=== PATIENT | male | born 1980 ===

== ENCOUNTER 2020-12-13 22:16 | Emergency (ER) | payer BC, OTHER ==
[2020-12-13] MEDS ORDERED: propofoL 200 MG/20 ML VIAL IV ONE (23:37)
[2020-12-14] MEDS ORDERED: propofoL 200 MG/20 ML VIAL IV ONE (00:07)
[2020-12-14] MEDS ORDERED: MIDAZOLAM HCL 2 MG/2 ML INJ ONE ×2 (00:10→00:45)
[2020-12-14] MEDS ORDERED: FENTANYL CITR 100 MCG/2 ML ONE ×4 (00:10→02:03)
[2020-12-14] MEDS ORDERED: NA CHLORIDE 0.9% 1,000 ML ONE (00:34)
[2020-12-14] MEDS ORDERED: ONDANSETRON 4 MG/2 ML VIAL ONE (02:07)
[2020-12-14] MEDS ORDERED: NA CHLORIDE 0.9% 100 ML ONE (02:29)
[2020-12-14] MEDS ORDERED: FOSPHENYTOIN PE 500 MG/10 ML VIAL ONE (02:31)
--- NOTE | 2020-12-14 03:36 | ER ---
Nurse's Notes [facility] Name: Yasir Padilla Age: 40 yrs Sex: Male : 1980 Arrival Date: 12/13/2020 Time: 22:17 Bed 23 Private MD: Diagnosis: Epilepsy and recurrent seizures;Other dislocation of right shoulder joint;Recurrent dislocation, right shoulder Presentation: 12/13 22:20 Acuity: LISA 3 ll2 22:20 Onset of symptoms was December 13, 2020 at 23:05. ll2 23:01 Chief complaint: EMS states: EMS toned to group home for inmate having 1 unwitnessed and 1 ll2 witnessed seizure and possible shoulder dislocation. arrived with 2 guards in handcuffs. states he stopped taking is dilantin and hasn't had it for about a week now. this has happened prior according to patient. pt is calm and cooperative. dilatin was administered in route according to EMS. Coronavirus screen: Client denies travel out of the [place] in the last 14 days. At this time, the client does not indicate any symptoms associated with coronavirus-19. Ebola Screen: Patient negative for fever greater than or equal to 101.5 degrees Fahrenheit, and additional compatible Ebola Virus Disease symptoms. Initial Sepsis Screen: Does the patient meet any 2 criteria? No. Patient's initial sepsis screen is negative. Does the patient have a suspected source of infection? No. Patient's initial sepsis screen is negative. Risk Assessment: Do you want to hurt yourself or someone else? Patient reports no desire to harm self or others. 23:01 Method Of Arrival: EMS: [facility] ll2 Triage Assessment: 23:10 General: Appears in no apparent distress. Behavior is calm, cooperative, appropriate ll2 for age. Pain: Denies pain. Neuro: Level of Consciousness is awake, alert, obeys commands, Oriented to person, place, time, situation. Cardiovascular: Patient's skin is warm and dry. Respiratory: Airway is patent Respiratory effort is even, unlabored, Respiratory pattern is regular, symmetrical. Derm: Skin is intact, is healthy with good turgor. Musculoskeletal: Circulation, motion, and sensation intact. Range of motion: intact in all extremities. Historical: - Allergies: 23:10 No Known Allergies; ll2 - Home Meds: 23:10 Risperdal 0.25 mg Oral tab 2 tabs 2 times per day [Active]; Dilantin 30 mg Oral cap ll2 [Active]; Benadryl 25 mg Oral cap 2 caps once daily [Active]; - PMHx: 12/14 04:21 Seizures; sg - Immunization history:: Adult Immunizations up to date. - Social history:: Smoking status: unknown. Screenin:33 Abuse screen: Denies threats or abuse. Nutritional screening: No deficits noted. ll2 Tuberculosis screening: No symptoms or risk factors identified. Fall Risk None identified. Assessment: 12/13 23:11 Reassessment: see triage assessment. ll2 12/14 00:15 Reassessment: Patient and/or family updated on plan of care and expected duration. Pain ll2 level reassessed. Patient is alert, oriented x 3, equal unlabored respirations, skin warm/dry/pink. 02:00 Reassessment: Patient and/or family updated on plan of care and expected duration. Pain ll2 level reassessed. Patient is alert, oriented x 3, equal unlabored respirations, skin warm/dry/pink. 03:00 Reassessment: Patient and/or family updated on plan of care and expected duration. Pain ll2 level reassessed. Patient is alert, oriented x 3, equal unlabored respirations, skin warm/dry/pink. 04:18 Reassessment: Patricia with [facility] care, Inmate number [id number]. spoke with Radha reed with transport command center, awaiting a call back with [facility] for transport at this time. 05:04 Reassessment: report given to Joselyn AUSTIN with [facility] ER. Vital Signs: 12/13 23:00 BP 144 / 94; Pulse 69; Resp 15; Temp 98.6; Pulse Ox 100% on R/A; ll2 23:01 BP 143 / 76; Pulse 88; Resp 18; Pulse Ox 99% on R/A; ll2 23:40 BP 154 / 80; Pulse 94; Resp 18; Pulse Ox 98% on R/A; ll2 23:52 BP 98 / 85; Pulse 94; Resp 20; Pulse Ox 94% on R/A; ll2 23:58 BP 129 / 90; Pulse 99; Resp 22; Pulse Ox 94% on R/A; ll2 12/14 00:04 BP 116 / 73; Pulse 74; Resp 20; Pulse Ox 92% on R/A; ll2 01:00 BP 140 / 92; Pulse 86; Resp 18; Pulse Ox 94% on 2 lpm NC; ll2 04:35 Weight 104.33 kg (R); Height 6 ft. 1 in. (185.42 cm); sg 04:35 Body Mass Index 30.34 (104.33 kg, 185.42 cm) sg ED Course: 12/13 22:17 Patient arrived in ED. sg 22:18 Zachery Moody MD is Attending Physician. kdr 22:35 Shoulder Right (2 View) XRAY In Process Unspecified. EDMS 22:58 CT Head C Spine In Process Unspecified. EDMS 23:01 Susana Palma, RN is Primary Nurse. ll2 23:06 Triage completed. ll2 12/14 00:35 Shoulder Right (2 View) XRAY In Process Unspecified. EDMS 01:33 Patient has correct armband on for positive identification. Bed in low position. ll2 school bus monitor on. Pulse ox on. NIBP on. 01:33 Assist provider with reduction of right shoulder. ll2 01:40 Inserted saline lock: 22 gauge in right hand, using aseptic technique. ea 02:29 Attempted to initiate transfer with Benjy from [facility]. Stated that it would be tt3 denied due to them not being capable to find and provide transportation to [place] due to weather. Stated we could try at [facility] and if accepted, they would give approval for that. Information was passed on to Dr. Moody. 02:37 Initiated transfer at [facility] with ITALIA. Stated he would call back. tt3 02:45 ITALIA called back with Dr. Estevez to speak with Dr. Moody regarding the transfer request.tt3 03:20 Arm band placed on. sg 03:31 Primary Nurse role handed off by Susana Palma, RN sg 03:31 Sammy Michael, RN is Primary Nurse. sg 05:50 Patient transferred, IV remains in place. intact, No redness/swelling at site. sg Administered Medications: 12/13 23:46 Drug: Propofol 100 mg Route: IVP; Site: right antecubital; ll2 12/14 01:00 Follow up: Response: No adverse reaction ll2 12/13 23:48 Drug: Propofol 100 mg Route: IVP; Site: right antecubital; ll2 12/14 00:45 Follow up: Response: No adverse reaction ll2 12/13 23:50 Drug: Propofol 100 mg Route: IVP; Site: right antecubital; ll2 12/14 02:50 Follow up: Response: No adverse reaction ll2 12/13 23:55 Drug: fentaNYL (PF) 100 mcg Route: IVP; Site: right antecubital; ll2 12/14 01:00 Follow up: Response: No adverse reaction ll2 12/13 23:55 Drug: fentaNYL (PF) 100 mcg Route: IVP; Site: right antecubital; ll2 12/14 01:00 Follow up: Response: No adverse reaction ll2 12/13 23:55 Drug: Versed 2 mg Route: IVP; Site: right antecubital; ll2 12/14 02:50 Follow up: Response: No adverse reaction ll2 12/13 23:55 Drug: Versed 2 mg Route: IVP; Site: right antecubital; ll2 12/14 02:50 Follow up: Response: No adverse reaction ll2 01:45 Drug: Versed 2 mg Route: IVP; Site: right hand; ll2 02:55 Follow up: Response: No adverse reaction ll2 01:47 Drug: fentaNYL (PF) 100 mcg Route: IVP; Site: right hand; ll2 03:00 Follow up: Response: No adverse reaction ll2 01:47 Drug: fentaNYL (PF) 100 mcg Route: IVP; Site: right hand; ll2 01:50 Follow up: Response: No adverse reaction ll2 01:50 Drug: Versed 2 mg Route: IVP; Site: right hand; ll2 02:50 Follow up: Response: No adverse reaction ll2 01:50 Drug: Versed 2 mg Route: IVP; Site: right hand; ll2 02:50 Follow up: Response: No adverse reaction ll2 01:50 Drug: Zofran (Ondansetron) 4 mg Route: IVP; Site: right hand; ll2 02:50 Follow up: Response: No adverse reaction ll2 02:22 Drug: Fosphenytoin 1 grams Route: IVPB; Site: right hand; ll2 03:30 Follow up: Response: No adverse reaction; IV Status: Completed infusion; IV Intake: ll2 100ml Outcome: 03:35 ER care complete, transfer ordered by . kdr 05:00 Transferred by ground EMS to [facility], [facility], Transfer form completed. sg 05:00 Condition: stable 05:00 Instructed on the need for transfer, safety practices, Demonstrated understanding of instructions, report given to Joselyn AUSTIN in the ER, accepting ortho 05:50 Patient left the ED. sg Signatures: Dispatcher [employer] EDMS Sammy Michael, RN RN sg Zachery Moody MD MD [facility] Ivone Hoffmann RN RN Susana Guardado RN RN ll2 Robert Maya tt3 Corrections: (The following items were deleted from the chart) 03:23 02:30 Versed 2 mg IVP in right hand ll2 ll2 03:24 02:00 Versed 2 mg IVP in right hand ll2 ll2 03:25 01:40 Versed 2 mg IVP in right antecubital ll2 ll2 03:26 01:40 Versed 2 mg IVP in right antecubital ll2 ll2
--- NOTE | 2020-12-14 03:36 | EDPHYS ---
Physician Documentation [facility] Name: Yasir Padilla Age: 40 yrs Sex: Male : 1980 Arrival Date: 12/13/2020 Time: 22:17 Bed 23 Private MD: ED Physician Zachery Moody HPI: 12/14 03:23 This 40 yrs old Male presents to ER via EMS with complaints of s/p seizure kdr and right shoulder dislocation. 03:23 MARICRUZ patient sates that he has been out of his meds for about a week and had a seizure kdr today. He ahas an abrasion on his forehead and his right shoulder appears to be dislocated. He states that this is the third time this has happened. He has no other injuries or c/o in the ED. Onset: The symptoms/episode began/occurred suddenly, just prior to arrival. Severity of symptoms: At their worst the symptoms were mild moderate in the emergency department the symptoms are unchanged. The patient has experienced similar episodes in the past, several times. The patient has not recently seen a physician. Historical: - Allergies: 12/13 23:10 No Known Allergies; ll2 - Home Meds: 23:10 Risperdal 0.25 mg Oral tab 2 tabs 2 times per day [Active]; Dilantin 30 mg Oral cap ll2 [Active]; Benadryl 25 mg Oral cap 2 caps once daily [Active]; - PMHx: 12/14 04:21 Seizures; sg - Immunization history:: Adult Immunizations up to date. - Social history:: Smoking status: unknown. ROS: 03:23 Constitutional: Negative for fever, chills, and weight loss, Eyes: Negative for injury, kdr pain, redness, and discharge, ENT: Negative for injury, pain, and discharge, Neck: Negative for injury, pain, and swelling, Cardiovascular: Negative for chest pain, palpitations, and edema, Respiratory: Negative for shortness of breath, cough, wheezing, and pleuritic chest pain, Abdomen/GI: Negative for abdominal pain, nausea, vomiting, diarrhea, and constipation, Back: Negative for injury and pain, : Negative for injury, bleeding, discharge, and swelling, Skin: Negative for injury, rash, and discoloration, Psych: Negative for depression, anxiety, suicide ideation, homicidal ideation, and hallucinations, Allergy/Immunology: Negative for hives, rash, and allergies, Endocrine: Negative for neck swelling, polydipsia, polyuria, polyphagia, and marked weight changes, Hematologic/Lymphatic: Negative for swollen nodes, abnormal bleeding, and unusual bruising. 03:23 MS/extremity: Positive for injury or acute deformity, decreased range of motion, pain, swelling, tenderness, of the anterior aspect of right shoulder and posterior aspect of right shoulder, Negative for laceration, paresthesias. Exam: 03:23 Constitutional: This is a well developed, well nourished patient who is awake, alert, kdr and in no acute distress. Head/Face: Normocephalic, atraumatic. Eyes: Pupils equal round and reactive to light, extra-ocular motions intact. Lids and lashes normal. Conjunctiva and sclera are non-icteric and not injected. Cornea within normal limits. Periorbital areas with no swelling, redness, or edema. Neck: Trachea midline, no thyromegaly or masses palpated, and no cervical lymphadenopathy. Supple, full range of motion without nuchal rigidity, or vertebral point tenderness. No Meningismus. Chest/axilla: Normal chest wall appearance and motion. Nontender with no deformity. No lesions are appreciated. Cardiovascular: Regular rate and rhythm with a normal S1 and S2. No gallops, murmurs, or rubs. Normal PMI, no JVD. No pulse deficits. Respiratory: Lungs have equal breath sounds bilaterally, clear to auscultation and percussion. No rales, rhonchi or wheezes noted. No increased work of breathing, no retractions or nasal flaring. Abdomen/GI: Soft, non-tender, with normal bowel sounds. No distension or tympany. No guarding or rebound. No evidence of tenderness throughout. Back: No spinal tenderness. No costovertebral tenderness. Full range of motion. Skin: Warm, dry with normal turgor. Normal color with no rashes, no lesions, and no evidence of cellulitis. Neuro: Awake and alert, GCS 15, oriented to person, place, time, and situation. Cranial nerves II-XII grossly intact. Motor strength 5/5 in all extremities. Sensory grossly intact. Cerebellar exam normal. Normal gait. Psych: Awake, alert, with orientation to person, place and time. Behavior, mood, and affect are within normal limits. 03:23 Musculoskeletal/extremity: Extremities: grossly normal except: noted in the anterior aspect of right shoulder and posterior aspect of right shoulder: decreased ROM, pain, tenderness. Vital Signs: 12/13 23:00 BP 144 / 94; Pulse 69; Resp 15; Temp 98.6; Pulse Ox 100% on R/A; ll2 23:01 BP 143 / 76; Pulse 88; Resp 18; Pulse Ox 99% on R/A; ll2 23:40 BP 154 / 80; Pulse 94; Resp 18; Pulse Ox 98% on R/A; ll2 23:52 BP 98 / 85; Pulse 94; Resp 20; Pulse Ox 94% on R/A; ll2 23:58 BP 129 / 90; Pulse 99; Resp 22; Pulse Ox 94% on R/A; ll2 12/14 00:04 BP 116 / 73; Pulse 74; Resp 20; Pulse Ox 92% on R/A; ll2 01:00 BP 140 / 92; Pulse 86; Resp 18; Pulse Ox 94% on 2 lpm NC; ll2 04:35 Weight 104.33 kg (R); Height 6 ft. 1 in. (185.42 cm); sg 04:35 Body Mass Index 30.34 (104.33 kg, 185.42 cm) sg Procedures: 03:23 Reduction: of the right shoulder, using traction, manipulation, Immobilized with kdr shoulder immobilizer. Patient tolerated Post reduction film - Continues to be anteriorly dislocated. The patient was difficult to get adequately sedated and relaxed. ON the first attempt with propofol, the patient has his best sedation and it was felt that he had been reduced. The patient states that when the central sterilization technician put the board behind him, it popped out again and he had immediate pain. On two subsequent attempts, the patient was never adequately sedated despite tremendous doses of narcotics and benzo's. Therefore, it was determined that he should be transferred to a facility with on-call ortho who could address this issue.. MDM: 03:23 Data reviewed: vital signs, nurses notes, radiologic studies. Counseling: I had a kdr detailed discussion with the patient and/or guardian regarding: the historical points, exam findings, and any diagnostic results supporting the discharge/admit diagnosis, lab results, radiology results, the need to transfer to another facility. 03:35 Patient medically screened. kdr 12/13 22:19 Order name: Janette; Complete Time: 02:02 kdr 12/13 22:19 Order name: CT Head C Spine kdr 12/13 22:19 Order name: Shoulder Right (2 View) XRAY kdr 12/14 00:04 Order name: Shoulder Right (2 View) XRAY em Administered Medications: 12/13 23:46 Drug: Propofol 100 mg Route: IVP; Site: right antecubital; ll2 12/14 01:00 Follow up: Response: No adverse reaction ll2 12/13 23:48 Drug: Propofol 100 mg Route: IVP; Site: right antecubital; ll2 12/14 00:45 Follow up: Response: No adverse reaction ll2 12/13 23:50 Drug: Propofol 100 mg Route: IVP; Site: right antecubital; ll2 12/14 02:50 Follow up: Response: No adverse reaction ll2 12/13 23:55 Drug: fentaNYL (PF) 100 mcg Route: IVP; Site: right antecubital; ll2 12/14 01:00 Follow up: Response: No adverse reaction ll2 12/13 23:55 Drug: fentaNYL (PF) 100 mcg Route: IVP; Site: right antecubital; ll2 12/14 01:00 Follow up: Response: No adverse reaction ll2 12/13 23:55 Drug: Versed 2 mg Route: IVP; Site: right antecubital; ll2 12/14 02:50 Follow up: Response: No adverse reaction ll2 12/13 23:55 Drug: Versed 2 mg Route: IVP; Site: right antecubital; ll2 12/14 02:50 Follow up: Response: No adverse reaction ll2 01:45 Drug: Versed 2 mg Route: IVP; Site: right hand; ll2 02:55 Follow up: Response: No adverse reaction ll2 01:47 Drug: fentaNYL (PF) 100 mcg Route: IVP; Site: right hand; ll2 03:00 Follow up: Response: No adverse reaction ll2 01:47 Drug: fentaNYL (PF) 100 mcg Route: IVP; Site: right hand; ll2 01:50 Follow up: Response: No adverse reaction ll2 01:50 Drug: Versed 2 mg Route: IVP; Site: right hand; ll2 02:50 Follow up: Response: No adverse reaction ll2 01:50 Drug: Versed 2 mg Route: IVP; Site: right hand; ll2 02:50 Follow up: Response: No adverse reaction ll2 01:50 Drug: Zofran (Ondansetron) 4 mg Route: IVP; Site: right hand; ll2 02:50 Follow up: Response: No adverse reaction ll2 02:22 Drug: Fosphenytoin 1 grams Route: IVPB; Site: right hand; ll2 03:30 Follow up: Response: No adverse reaction; IV Status: Completed infusion; IV Intake: ll2 100ml Disposition: 12/14/20 03:35 Transfer ordered to [facility]. Diagnosis are Epilepsy and recurrent seizures, Other dislocation of right shoulder joint, Recurrent dislocation, right shoulder. - Reason for transfer: Higher level of care. - Accepting physician is [facility]/ortho - awaiting ED contact. - Condition is Fair. - Problem is an acute exacerbation. - Symptoms are unchanged. Signatures: Dispatcher [employer] EDMS Sammy Michael RN RN sg Zachery Moody MD MD kdr Susana Palma RN RN ll2 Corrections: (The following items were deleted from the chart) 05:50 03:35 12/14/2020 03:35 Transfer ordered to [facility]. sg Diagnosis is Epilepsy and recurrent seizures; Other dislocation of right shoulder joint; Recurrent dislocation, right shoulder. Reason for transfer: Higher level of care. Accepting physician is [facility]ortho - awaiting ED contact. Condition is Fair. Problem is an acute exacerbation. Symptoms are unchanged. kdr
[2020-12-14 05:55] VITALS: TEMP 98.6
[2020-12-14 06:02] VITALS: BP 140/92; O2SAT 94
--- NOTE | 2020-12-14 08:02 | RAD REPORT ---
EXAM DESCRIPTION: Shoulder Right 2 View - 12/13/2020 10:35 pm CLINICAL HISTORY: PAIN, fall COMPARISON: No comparisons TECHNIQUE: Internal and external rotation views of the right shoulder were obtained. FINDINGS: Right humeral head is dislocated inferior to the glenoid. There is only a very small porti on of the humeral head is superimposed on the inferior margin of the glenoid. The humeral head is not positioned medial and inferior to the glenoid typical for anterior dislocation. Posterior dislocatio n is suspected. AC joint is normal in appearance. No glenoid fracture confirmed. No rib or upper lung parenchymal f inding right-side of the chest. No abnormal soft tissue calcifications. IMPRESSION: Right humeral head dislocation, probably a posterior dislocation.
--- NOTE | 2020-12-14 08:21 | RAD REPORT ---
EXAM DESCRIPTION: Shoulder Right 2 View - 12/14/2020 12:35 am CLINICAL HISTORY: post reduction COMPARISON: Shoulder Right 2 View dated 12/13/2020 TECHNIQUE: Internal and external rotation views of the right shoulder were obtained. FINDINGS: Left humeral head remains dislocated lateral and inferior to normal positioning. This is m ore typical for posterior dislocation. No fractures identified. AC joint remains normal in appearance. IMPRESSION: Right humeral head remains dislocated.
--- NOTE | 2020-12-14 09:56 | RAD REPORT ---
EXAM DESCRIPTION: CT - [id number] - 12/14/2020 6:15 am CLINICAL HISTORY: Seizure, Head injury, shoulder dislocation COMPARISON: None. TECHNIQUE: CT Head and Cervical spine WO contrast on 12/13/2020 10:19 PM AGRICULTURAL ECONOMICS PROFESSOR This exam was performed according to our departmental dose-optimization program, which includes autom ated exposure control, adjustment of the mA and/or kV according to patient size and/or use of iterati ve reconstruction technique. FINDINGS: Brain: There is no acute hemorrhage, mass effect or midline shift. Araujo-white differentiat ion is preserved. There is no hydrocephalus. There is no significant volume loss for age. The calvarium is intact. Orbits and globes are unremarkable. The paranasal sinuses are clear. Mastoid air cells are clear. Cervical Spine: There is no acute fracture. Alignment is anatomic. Disc spaces are maintained. Vertebral body heights are preserved. Soft tissues are unremarkable. IMPRESSION: No acute postraumatic findings. Electronically signed by: Bryson Roe MD 12/13/2020 11:07 PM AGRICULTURAL ECONOMICS PROFESSOR Due to temporary technical issues with the PACS/Fluency reporting system, reports are being signed by the in house radiologists without review as a courtesy to insure prompt reporting. The interpreting radiologist is fully responsible for the content of the report.
== END 2020-12-14 05:50 | disposition short-term general hospital (02) ==
LOC: ER 22:16
PROC: 0RSJXZZ Reposition Right Shoulder Joint, External Approach (ICD-10-PCS; principal; 2020-12-13)
DX: M24.411 Recurrent dislocation, right shoulder (principal); S00.81XA Abrasion of other part of head, initial encounter; X58.XXXA Exposure to other specified factors, initial encounter; G40.909 Epilepsy, unspecified, not intractable, without status epilepticus
CPT/HCPCS: 36415; 80185; 70450; 72125; 73030 ×2; 99285; 23650; J2250; Q2009; J2405; J2704; J3010; J7030